=== PATIENT | female | born 1995 | race American Indian/Alaskan Native ===

== ENCOUNTER 2017-02-18 01:06 | Inpatient (IN) | payer BC ==
[2017-02-18] MEDS ORDERED: Sodium Chloride 0.9% 10 ML Syringe FLUSH PRN (02:26)
[2017-02-18] MEDS ORDERED: Lidocaine 1% 50 ML MDV INJECT ONE (02:26)
[2017-02-18] MEDS ORDERED: Oxytocin/Lactated Ringers 10 UNIT/1,000 ML BAG IV SCH (02:30)
[2017-02-18] MEDS ORDERED: Penicillin G Potassium 5 MILLUNITS in Sodium Chloride 0.9% 100 ML IV ONE (02:30)
[2017-02-18] MEDS: Lactated Ringers 1,000 ML IV SCH ×2 (03:00→04:53)
--- NOTE | 2017-02-18 05:34 | PCM.LDHP ---
L&D History of Present Illness - General Date of Service: 02/18/17 Admit Problem/Dx: Patient Status Order with Admit Dx/Problem 02/18/17 02:25 Patient Status [ADT] Routine Admission Diagnosis/Problem Admission Diagnosis/Problem Source of Information: Patient History Limitations: Reports: No Limitations - History of Present Illness Introduction:: 21-year-old TANIKA 03/13/17 with estimated gestational age 36 weeks 5 days presented to labor and delivery with contractions patient has a history of being dilated in the clinic "7 cm" I examined the patient 0510 hrs. and cervix is approximate 5 cm meters dilated patient is having irregular contractions will recheck patient in 1 hour to one half hours to determine if any change in cervical dilatation first dose of antibiotics given because of the B strep positive at 0324 hrs. blood type is A+ antibody screen negative rubella immune RPR nonreactive hepatitis B surface antigen nonreactive HIV negative Chlamydia negative GC negative patient has had 1 prior delivery at 36+ weeks premises 36 weeks 6 days) Improves with: Reports: None Worsens with: Reports: None Associated Symptoms: Reports: N - Related Data Allergies/Adverse Reactions: Allergies Allergy/AdvReac Type Severity Reaction Status Date / Time chocolate flavor Allergy Hives Verified 01/11/17 04:38 CDT venom-honey bee AdvReac Lethargy Verified 01/11/17 04:38 CDT [bee venom (honey bee)] barbaque chips Allergy Facial Uncoded 02/15/16 12:56 Swelling Home Medications: Home Meds Vit W-Ca,Fe,FA(<1 mg) [ Vitamins] 1 each PO DAILY 01/10/17 [ History] Past Medical History - Past Health History Medical/Surgical History: Denies 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 Para: 1 (1102) - Infectious Disease History Infectious Disease History: Reports: MRSA Social & Family History - Family History Family Medical History: Noncontributory - Tobacco Use Smoking Status *Q: Never Smoker Second Hand Smoke Exposure: No - Caffeine Use Caffeine Use: Reports: Soda - Alcohol Use Days Per Week of Alcohol Use: 0 - Recreational Drug Use Recreational Drug Use: No H&P Review of Systems - Review of Systems: Review Of Systems: See Below General: Reports: No Symptoms HEENT: Reports: No Symptoms Pulmonary: Reports: No Symptoms Cardiovascular: Reports: No Symptoms Gastrointestinal: Reports: No Symptoms Genitourinary: Reports: No Symptoms Musculoskeletal: Reports: No Symptoms Skin: Reports: No Symptoms Psychiatric: Reports: No Symptoms Neurological: Reports: No Symptoms Hematologic/Lymphatic: Reports: No Symptoms Immunologic: Reports: No Symptoms L&D Exam - Exam Exam: See Below - Vital Signs Vital Signs: Last Vital Signs Temp 98.2 F 02/18/17 01:32 Pulse 87 02/18/17 01:32 Resp 18 02/18/17 01:32 BP 115/76 02/18/17 01:32 Pulse Ox 100 02/18/17 01:32 Weight: 209 lb 9.6 oz - OB Specific Fundal Height In cm: 36 Contraction Intensity: Moderate Movement: Active Heart Tones: Present Heart Tones per Min: 130 Heart Rate (FHR) Variability: Moderate (6-25 bmp) Presentation: Vertex - De Dios Score De Dios Score Cervix Position: Posterior De Dios Score Consistency: Soft De Dios Score Effacement: 51-70% De Dios Score Dilation: > 5 cm De Dios Score 's Station: -2 De Dios Score Total: 8 - Exam General: Alert, Oriented HEENT: Mucosa Moist & [place] Neck: Supple, Trachea Midline Lungs: Clear to Auscultation, Normal Respiratory Effort Cardiovascular: Regular Rate, Regular Rhythm Abdomen: Normal Bowel Sounds, Soft, Pelvis Stable Genitourinary: Normal external exam Extremities: Normal Inspection Skin: Warm, Dry, Intact Psychiatric: Alert, Normal Affect, Normal Mood - Patient Data Lab Results Last 24 hrs: Laboratory Results - last 24 hr 02/18/17 02/18/17 02/18/17 Range/Units 01:30 02:41 02:41 WBC 8.35 (3.98-10.04) K/mm3 RBC 3.81 L (3.98-5.22) M/mm3 Hgb 8.4 L (11.2-15.7) gm/L Hct 26.9 L (34.1-44.9) % MCV 70.6 L (79.4-94.8) fl MCH 22.0 L (25.6-32.2) pg MCHC 31.2 L (32.2-35.5) g/dl RDW Std Deviation 44.2 (36.4-46.3) fL Plt Count 375 H (182-369) K/mm3 MPV 9.9 (9.4-12.3) fl Neut % (Auto) 66.1 (34.0-71.1) % Lymph % (Auto) 23.6 (19.3-51.7) % [place] % (Auto) 8.3 (4.7-12.5) % Eos % (Auto) 1.0 (0.7-5.8) Baso % (Auto) 0.5 (0.1-1.2) % Neut # (Auto) 5.53 (1.56-6.13) K/mm3 Lymph # (Auto) 1.97 (1.18-3.74) K/mm3 [place] # (Auto) 0.69 H (0.24-0.36) K/mm3 Eos # (Auto) 0.08 (0.04-0.36) K/mm3 Baso # (Auto) 0.04 (0.01-0.08) K/mm3 Manual Slide Review Abnormal smear Membrane Rupture Negative Blood Type A POSITIVE Gel Antibody Screen Negative Result Diagrams: 02/18/17 02:41 - Problem List (1) 36 weeks gestation of SNOMED Code(s): 36717292 ICD Code: Z3A.36 - 36 WEEKS GESTATION OF Status: Acute Current Visit: Yes (2) GBS carrier SNOMED Code(s): 6793098447192 ICD Code: Z22.330 - CARRIER OF GROUP B STREPTOCOCCUS Status: Acute Current Visit: Yes (3) uterine contractions in third trimester, antepartum SNOMED Code(s): 439382560, 654055865 ICD Code: O47.03 - FALSE LABOR BEFORE 37 COMPLETED WEEKS OF GEST, THIRD TRI Status: Acute Current Visit: No Problem List Initiated/Reviewed/Updated: No Orders Last 24hrs: Active Orders 24 hr Category Date Time Status Patient Status [ADT] Routine ADT 02/18/17 02:25 Active Activity as Tolerated [RC] PFP Care 02/18/17 02:27 Active Communication Order [RC] ASDIRECTED Care 02/18/17 02:27 Active Heart Tones [RC] ASDIRECTED Care 02/18/17 02:27 Active Notify Provider [RC] PFP Care 02/18/17 02:27 Active Notify Provider [RC] PRN Care 02/18/17 02:27 Active Peripheral IV Care [RC] . DIRECTED Care 02/18/17 02:27 Active Vital Signs [RC] PER UNIT ROUTINE Care 02/18/17 02:27 Active Clear Liquid Diet [DIET] Diet 02/18/17 Breakfast Active CULTURE URINE [RM] Routine Lab 02/18/17 02:26 Uncollected UA W/MICROSCOPIC [URIN] Routine Lab 02/18/17 02:26 Uncollected Lactated Ringers [Ringers, Lactated] 1,000 ml Med 02/18/17 02:30 Active IV ASDIRECTED Oxytocin/Lactated Ringers [Pitocin in LR 10 Units/1,000 Med 02/18/17 02:30 Active ML] 10 unit in 1,000 ml IV TITRATE Penicillin G Potassium [Pfizerpen] 2.5 millunits Med 02/18/17 06:30 Active Sodium Chloride 0.9% [Normal Saline] 100 ml IV Q4H Sodium Chloride 0.9% [Saline Flush] Med 02/18/17 02:26 Active 10 ml FLUSH ASDIRECTED PRN Electronic Heart Tones Ext w TOCO [WOMSER] Oth 02/18/17 02:27 Ordered Routine Electronic Heart Tones Internal [WOMSER] Per Unit Oth 02/18/17 02:27 Ordered Routine Peripheral IV Insertion Adult [OM.PC] Routine Oth 02/18/17 02:27 Ordered Resuscitation Status Routine Resus Stat 02/18/17 02:26 Ordered Medication Orders Lactated Ringer's (Ringers, Lactated) 1,000 mls @ 100 mls/hr IV ASDIRECTED KENNY Last Admin: 02/18/17 04:53 Dose: 100 mls/hr Infusion: 02/18/17 04:53 Dose: 100 mls/hr Admin: 02/18/17 03:00 Dose: 100 mls/hr Oxytocin/Lactated Ringer's (Pitocin In Lr 10 Units/1,000 Ml) 10 unit in 1,000 mls @ 500 mls/hr IV TITRATE [facility] PRN Reason: Protocol Penicillin G Potassium 2.5 (millunits/ Sodium Chloride) 100 mls @ 55 mls/hr IV Q4H [facility] Sodium Chloride (Saline Flush) 10 ml FLUSH ASDIRECTED PRN PRN Reason: Keep Vein Open Assessment/Plan Comment:: Will reassess patient in approximately 1-2 hours and determine if cervical change has occurred
[2017-02-18] MEDS ORDERED: Penicillin G Potassium 2.5 MILLUNITS in Sodium Chloride 0.9% 100 ML IV SCH (06:30)
--- NOTE | 2017-02-18 06:54 | PCM.SN ---
- Free Text/Narrative Note: Cervix now 7 cm dilated 70% effaced soft mid position 0 station vertex amniotomy performed at 0 0650 hrs. clear fluid heart tones category 1 before and after amniotomy, will receive her second dose of antibiotics for group B strep prophylaxis
--- NOTE | 2017-02-18 08:41 | PCM.SN ---
- Free Text/Narrative Note: Cervix 9 cm/100 % effaced, midposition, soft, vertex 0 station. Slight nausea, had BM, feeling some pressure. Cat I FHR
--- NOTE | 2017-02-18 09:24 | PCM.DEL ---
L & D Note - General Info Date of Service: 02/18/17 Mother's Due Date: 03/13/17 - Delivery Note Labor: spontaneous, augmented by ARM Delivery Outcome: Livebirth (Female liveborn Sundays02/19/2015 and 0859 hrs. CEDRICK female 3280 g 7 pounds 3.4 ounces Apgars 8/9) Delivery Method: Spontaneous Vaginal Delivery Infant Delivery Mode: Spontaneous Presentation: Left Occiput Anterior (CEDRICK) Nuchal Cord: None Prep: Povidone-Iodine (Betadine Anesthesia Type: None Episiotomy Type: None Laceration: none Placenta: intact, spontaneous (Spontaneous delivery Schultze presentation at 0902 hrs. and intact central cord insertion discarded after examination) Cord: 3 vessels Estimated Blood Loss: 250 Resuscitation Needed: No [place]: Suctioned, Bulb Syringe, Stimulated, Warmed, Basco Used, Warmer Used Provider: Gregory Roman Score 1 min: 8 Score 5 min: 9 - Patient Data Vitals - most recent: Last Vital Signs Temp 98.2 F 02/18/17 01:32 Pulse 87 02/18/17 01:32 Resp 18 02/18/17 01:32 BP 115/76 02/18/17 01:32 Pulse Ox 100 02/18/17 01:32 Weight - most recent: 209 lb 9.6 oz I&O - last 24 hours: Intake & Output 02/17/17 02/18/17 02/18/17 22:59 06:59 14:59 Intake Total 100 Balance 100 Lab Results last 24 hrs: Laboratory Results - last 24 hr 02/18/17 02/18/17 02/18/17 Range/Units 01:30 02:41 02:41 WBC 8.35 (3.98-10.04) K/mm3 RBC 3.81 L (3.98-5.22) M/mm3 Hgb 8.4 L (11.2-15.7) gm/L Hct 26.9 L (34.1-44.9) % MCV 70.6 L (79.4-94.8) fl MCH 22.0 L (25.6-32.2) pg MCHC 31.2 L (32.2-35.5) g/dl RDW Std Deviation 44.2 (36.4-46.3) fL Plt Count 375 H (182-369) K/mm3 MPV 9.9 (9.4-12.3) fl Neut % (Auto) 66.1 (34.0-71.1) % Lymph % (Auto) 23.6 (19.3-51.7) % [place] % (Auto) 8.3 (4.7-12.5) % Eos % (Auto) 1.0 (0.7-5.8) Baso % (Auto) 0.5 (0.1-1.2) % Neut # (Auto) 5.53 (1.56-6.13) K/mm3 Lymph # (Auto) 1.97 (1.18-3.74) K/mm3 [place] # (Auto) 0.69 H (0.24-0.36) K/mm3 Eos # (Auto) 0.08 (0.04-0.36) K/mm3 Baso # (Auto) 0.04 (0.01-0.08) K/mm3 Manual Slide Review Abnormal smear Urine Color (Yellow) Urine Appearance (Clear) Urine pH (5.0-8.0) Ur Specific [place] (1.005-1.030) Urine Protein (Negative) Urine Glucose (UA) (Negative) Urine Ketones (Negative) Urine Occult Blood (Negative) Urine Nitrite (Negative) Urine Bilirubin (Negative) Urine Urobilinogen (0.2-1.0) Ur Leukocyte Esterase (Negative) Urine RBC (0-5) /hpf Urine WBC (0-5) /hpf Ur Epithelial Cells (0-5) /hpf Ur Transition Epith Cell (0-5) Urine Bacteria (FEW) /hpf Urine Mucus (FEW) /hpf Urine Yeast (NOT SEEN) Membrane Rupture Negative Blood Type A POSITIVE Gel Antibody Screen Negative 02/18/17 Range/Units 04:56 WBC (3.98-10.04) K/mm3 RBC (3.98-5.22) M/mm3 Hgb (11.2-15.7) gm/L Hct (34.1-44.9) % MCV (79.4-94.8) fl MCH (25.6-32.2) pg MCHC (32.2-35.5) g/dl RDW Std Deviation (36.4-46.3) fL Plt Count (182-369) K/mm3 MPV (9.4-12.3) fl Neut % (Auto) (34.0-71.1) % Lymph % (Auto) (19.3-51.7) % [place] % (Auto) (4.7-12.5) % Eos % (Auto) (0.7-5.8) Baso % (Auto) (0.1-1.2) % Neut # (Auto) (1.56-6.13) K/mm3 Lymph # (Auto) (1.18-3.74) K/mm3 [place] # (Auto) (0.24-0.36) K/mm3 Eos # (Auto) (0.04-0.36) K/mm3 Baso # (Auto) (0.01-0.08) K/mm3 Manual Slide Review Urine Color Yellow (Yellow) Urine Appearance Clear (Clear) Urine pH 6.0 (5.0-8.0) Ur Specific [place] > or = 1.030 (1.005-1.030) Urine Protein Negative (Negative) Urine Glucose (UA) Negative (Negative) Urine Ketones Negative (Negative) Urine Occult Blood Trace-lysed H (Negative) Urine Nitrite Negative (Negative) Urine Bilirubin Negative (Negative) Urine Urobilinogen 0.2 (0.2-1.0) Ur Leukocyte Esterase 1+ H (Negative) Urine RBC 0-5 (0-5) /hpf Urine WBC 5-10 H (0-5) /hpf Ur Epithelial Cells 10-20 H (0-5) /hpf Ur Transition Epith Cell 0-5 (0-5) Urine Bacteria Few (FEW) /hpf Urine Mucus Moderate H (FEW) /hpf Urine Yeast Not seen (NOT SEEN) Membrane Rupture Blood Type Gel Antibody Screen Med Orders - Current: Current Medications Lactated Ringer's (Ringers, Lactated) 1,000 mls @ 100 mls/hr IV ASDIRECTED [facility] Last Admin: 02/18/17 04:53 Dose: 100 mls/hr Oxytocin/Lactated Ringer's (Pitocin In Lr 10 Units/1,000 Ml) 10 unit in 1,000 mls @ 500 mls/hr IV TITRATE [facility] PRN Reason: Protocol Penicillin G Potassium 2.5 (millunits/ Sodium Chloride) 100 mls @ 55 mls/hr IV Q4H [facility] Last Admin: 02/18/17 07:05 Dose: 55 mls/hr Sodium Chloride (Saline Flush) 10 ml FLUSH ASDIRECTED PRN PRN Reason: Keep Vein Open Discontinued Medications Penicillin G Potassium 5 (millunits/ Sodium Chloride) 100 mls @ 55 mls/hr IV ONETIME ONE Stop: 02/18/17 04:19 Last Admin: 02/18/17 03:23 Dose: 55 mls/hr Lidocaine HCl (Xylocaine 1%) 50 ml INJECT ONETIME ONE Stop: 02/18/17 02:27 - Problem List & Annotations (1) 36 weeks gestation of SNOMED Code(s): 48498094 Code(s): Z3A.36 - 36 WEEKS GESTATION OF Status: Acute Current Visit: Yes (2) GBS carrier SNOMED Code(s): 5977425697932 Code(s): Z22.330 - CARRIER OF GROUP B STREPTOCOCCUS Status: Acute Current Visit: Yes (3) labor in third trimester with delivery SNOMED Code(s): 3303731, 648380538 Code(s): O60.14X0 - LABOR THIRD TRI W DELIVERY THIRD TRI, UNSP Status: Acute Current Visit: Yes Qualifiers: Fetus number: single or unspecified fetus Qualified Code(s): O60.14X0 - labor third trimester with delivery third trimester, not applicable or unspecified - Problem List Review Problem List Initiated/Reviewed/Updated: No - My Orders Last 24 Hours: My Active Orders 02/18/17 02:25 Patient Status [ADT] Routine 02/18/17 02:26 Sodium Chloride 0.9% [Saline Flush] 10 ml FLUSH ASDIRECTED PRN Resuscitation Status Routine 02/18/17 02:27 Activity as Tolerated [RC] PFP Communication Order [RC] ASDIRECTED Heart Tones [RC] ASDIRECTED Notify Provider [RC] PFP Notify Provider [RC] PRN Peripheral IV Care [RC] . DIRECTED Vital Signs [RC] PER UNIT ROUTINE Electronic Heart Tones Ext w TOCO [WOMSER] Routine Electronic Heart Tones Internal [WOMSER] Per Unit Routine Peripheral IV Insertion Adult [OM.PC] Routine 02/18/17 02:30 Lactated Ringers [Ringers, Lactated] 1,000 ml IV ASDIRECTED Oxytocin/Lactated Ringers [Pitocin in LR 10 Units/1,000 ML] 10 unit in 1,000 ml IV TITRATE 02/18/17 04:56 CULTURE URINE [RM] Routine 02/18/17 06:30 Penicillin G Potassium [Pfizerpen] 2.5 millunits Sodium Chloride 0.9% [Normal Saline] 100 ml IV Q4H 02/18/17 Breakfast Clear Liquid Diet [DIET] - Plan Plan:: Will reassess patient in approximately 1-2 hours and determine if cervical change has occurred
[2017-02-18] MEDS ORDERED: Acetaminophen 325 MG Tab PO PRN (09:34)
[2017-02-18] MEDS ORDERED: Benzocaine/Menthol 20%-0.5% Spray 56 GM Canister TOP PRN (09:34)
[2017-02-18] MEDS ORDERED: Witch Hazel Medicated Pads 100/Jar TOP PRN (09:34)
[2017-02-18] MEDS ORDERED: Docusate Sodium 100 MG Cap PO PRN (09:34)
[2017-02-18] MEDS ORDERED: Lanolin 100% Cream 7 GM Tube TOP PRN (09:34)
[2017-02-18] MEDS: Ibuprofen 600 MG Tab PO PRN ×2 (10:25→21:24)
--- NOTE | 2017-02-19 08:26 | PCM.SN ---
- Free Text/Narrative Note: day 1 Uterus involuting normally no heavy vaginal bleeding no leg cramping patient probably home tomorrow baby needs to stay 1 more day as well
[2017-02-19] MEDS: Prenatal Multivitamin with Calcium/Folic Acid/Iron Tab PO SCH (09:25)
[2017-02-20] MEDS: Prenatal Multivitamin with Calcium/Folic Acid/Iron Tab PO SCH (09:16)
--- NOTE | 2017-02-20 10:08 | PCM.DCSUM1 ---
Discharge Summary - Hospital Course Free Text/Narrative:: [facility] LIVE L/D Delivery Note Patient Name: DANI GUTIÉRREZ Date of : 89 Patient Status: Inpatient Attending Provider: Gregory Roman Date: 02/18/17 09:14 Initialization Date: 02/18/17 09:14 L & D Note - General Info Date of Service: 02/18/17 Mother's Due Date: 03/13/17 - Delivery Note Labor: spontaneous, augmented by ARM Delivery Outcome: Livebirth (Female liveborn Sundays02/19/2015 and 0859 hrs. CEDRICK female 3280 g 7 pounds 3.4 ounces Apgars 8/9) Infant Delivery Method: Spontaneous Vaginal Delivery Infant Delivery Mode: Spontaneous Presentation: Left Occiput Anterior (CEDRICK) Nuchal Cord: None Prep: Povidone-Iodine (Betadine Anesthesia Type: None Episiotomy Type: None Laceration: none Placenta: intact, spontaneous (Spontaneous delivery Schultze presentation at 0902 hrs. and intact central cord insertion discarded after examination) Cord: 3 vessels Estimated Blood Loss: 250 Resuscitation Needed: No : Suctioned, Bulb Syringe, Stimulated, Warmed, [place] Used, Warmer Used Provider: Gregory Roman Score 1 min: 8 Score 5 min: 9 - Patient Data Vitals - most recent: Last Vital Signs Temp 98.2 F 02/18/17 01:32 Pulse 87 02/18/17 01:32 Resp 18 02/18/17 01:32 BP 115/76 02/18/17 01:32 Pulse Ox 100 02/18/17 01:32 Weight - most recent: 209 lb 9.6 oz I&O - last 24 hours: Intake & Output 02/17/17 02/18/17 02/18/17 22:59 06:59 14:59 Intake Total 100 Balance 100 Lab Results last 24 hrs: Laboratory Results - last 24 hr 02/18/17 02/18/17 02/18/17 Range/Units 01:30 02:41 02:41 WBC 8.35 (3.98-10.04) K/mm3 RBC 3.81 L (3.98-5.22) M/mm3 Hgb 8.4 L (11.2-15.7) gm/L Hct 26.9 L (34.1-44.9) % MCV 70.6 L (79.4-94.8) fl MCH 22.0 L (25.6-32.2) pg MCHC 31.2 L (32.2-35.5) g/dl RDW Std Deviation 44.2 (36.4-46.3) fL Plt Count 375 H (182-369) K/mm3 MPV 9.9 (9.4-12.3) fl Neut % (Auto) 66.1 (34.0-71.1) % Lymph % (Auto) 23.6 (19.3-51.7) % [place] % (Auto) 8.3 (4.7-12.5) % Eos % (Auto) 1.0 (0.7-5.8) Baso % (Auto) 0.5 (0.1-1.2) % Neut # (Auto) 5.53 (1.56-6.13) K/mm3 Lymph # (Auto) 1.97 (1.18-3.74) K/mm3 [place] # (Auto) 0.69 H (0.24-0.36) K/mm3 Eos # (Auto) 0.08 (0.04-0.36) K/mm3 Baso # (Auto) 0.04 (0.01-0.08) K/mm3 Manual Slide Review Abnormal smear Urine Color (Yellow) Urine Appearance (Clear) Urine pH (5.0-8.0) Ur Specific [place] (1.005-1.030) Urine Protein (Negative) Urine Glucose (UA) (Negative) Urine Ketones (Negative) Urine Occult Blood (Negative) Urine Nitrite (Negative) Urine Bilirubin (Negative) Urine Urobilinogen (0.2-1.0) Ur Leukocyte Esterase (Negative) Urine RBC (0-5) /hpf Urine WBC (0-5) /hpf Ur Epithelial Cells (0-5) /hpf Ur Transition Epith Cell (0-5) Urine Bacteria (FEW) /hpf Urine Mucus (FEW) /hpf Urine Yeast (NOT SEEN) Membrane Rupture Negative Blood Type A POSITIVE Gel Antibody Screen Negative 02/18/17 Range/Units 04:56 WBC (3.98-10.04) K/mm3 RBC (3.98-5.22) M/mm3 Hgb (11.2-15.7) gm/L Hct (34.1-44.9) % MCV (79.4-94.8) fl MCH (25.6-32.2) pg MCHC (32.2-35.5) g/dl RDW Std Deviation (36.4-46.3) fL Plt Count (182-369) K/mm3 MPV (9.4-12.3) fl Neut % (Auto) (34.0-71.1) % Lymph % (Auto) (19.3-51.7) % [place] % (Auto) (4.7-12.5) % Eos % (Auto) (0.7-5.8) Baso % (Auto) (0.1-1.2) % Neut # (Auto) (1.56-6.13) K/mm3 Lymph # (Auto) (1.18-3.74) K/mm3 [place] # (Auto) (0.24-0.36) K/mm3 Eos # (Auto) (0.04-0.36) K/mm3 Baso # (Auto) (0.01-0.08) K/mm3 Manual Slide Review Urine Color Yellow (Yellow) Urine Appearance Clear (Clear) Urine pH 6.0 (5.0-8.0) Ur Specific [place] > or = 1.030 (1.005-1.030) Urine Protein Negative (Negative) Urine Glucose (UA) Negative (Negative) Urine Ketones Negative (Negative) Urine Occult Blood Trace-lysed H (Negative) Urine Nitrite Negative (Negative) Urine Bilirubin Negative (Negative) Urine Urobilinogen 0.2 (0.2-1.0) Ur Leukocyte Esterase 1+ H (Negative) Urine RBC 0-5 (0-5) /hpf Urine WBC 5-10 H (0-5) /hpf Ur Epithelial Cells 10-20 H (0-5) /hpf Ur Transition Epith Cell 0-5 (0-5) Urine Bacteria Few (FEW) /hpf Urine Mucus Moderate H (FEW) /hpf Urine Yeast Not seen (NOT SEEN) Membrane Rupture Blood Type Gel Antibody Screen Med Orders - Current: Current Medications Lactated Ringer's (Ringers, Lactated) 1,000 mls @ 100 mls/hr IV ASDIRECTED KENNY Last Admin: 02/18/17 04:53 Dose: 100 mls/hr Oxytocin/Lactated Ringer's (Pitocin In Lr 10 Units/1,000 Ml) 10 unit in 1,000 mls @ 500 mls/hr IV TITRATE KENNY PRN Reason: Protocol Penicillin G Potassium 2.5 (millunits/ Sodium Chloride) 100 mls @ 55 mls/hr IV Q4H KENNY Last Admin: 02/18/17 07:05 Dose: 55 mls/hr Sodium Chloride (Saline Flush) 10 ml FLUSH ASDIRECTED PRN PRN Reason: Keep Vein Open Discontinued Medications Penicillin G Potassium 5 (millunits/ Sodium Chloride) 100 mls @ 55 mls/hr IV ONETIME ONE Stop: 02/18/17 04:19 Last Admin: 02/18/17 03:23 Dose: 55 mls/hr Lidocaine HCl (Xylocaine 1%) 50 ml INJECT ONETIME ONE Stop: 02/18/17 02:27 - Problem List & Annotations (1) 36 weeks gestation of SNOMED Code(s): 20119366 Code(s): Z3A.36 - 36 WEEKS GESTATION OF Status: Acute Current Visit: Yes (2) GBS carrier SNOMED Code(s): 1403289995544 Code(s): Z22.330 - CARRIER OF GROUP B STREPTOCOCCUS Status: Acute Current Visit: Yes (3) labor in third trimester with delivery SNOMED Code(s): 8950673, 546184609 Code(s): O60.14X0 - LABOR THIRD TRI W DELIVERY THIRD TRI, UNSP Status: Acute Current Visit: Yes Qualifiers: Fetus number: single or unspecified fetus Qualified Code(s): O60.14X0 - labor third trimester with delivery third trimester, not applicable or unspecified - Problem List Review Problem List Initiated/Reviewed/Updated: No - My Orders Last 24 Hours: My Active Orders 02/18/17 02:25 Patient Status [ADT] Routine 02/18/17 02:26 Sodium Chloride 0.9% [Saline Flush] 10 ml FLUSH ASDIRECTED PRN Resuscitation Status Routine 02/18/17 02:27 Activity as Tolerated [RC] PFP Communication Order [RC] ASDIRECTED Heart Tones [RC] ASDIRECTED Notify Provider [RC] PFP Notify Provider [RC] PRN Peripheral IV Care [RC] . DIRECTED Vital Signs [RC] PER UNIT ROUTINE Electronic Heart Tones Ext w TOCO [WOMSER] Routine Electronic Heart Tones Internal [WOMSER] Per Unit Routine Peripheral IV Insertion Adult [OM.PC] Routine 02/18/17 02:30 Lactated Ringers [Ringers, Lactated] 1,000 ml IV ASDIRECTED Oxytocin/Lactated Ringers [Pitocin in LR 10 Units/1,000 ML] 10 unit in 1,000 ml IV TITRATE 02/18/17 04:56 CULTURE URINE [RM] Routine 02/18/17 06:30 Penicillin G Potassium [Pfizerpen] 2.5 millunits Sodium Chloride 0.9% [Normal Saline] 100 ml IV Q4H 02/18/17 Breakfast Clear Liquid Diet [DIET] - Plan Plan:: Will reassess patient in approximately 1-2 hours and determine if cervical change has occurred HPI Initial Comments: [facility] LIVE L/D Delivery Note Patient Name: DANI GUTIÉRREZ Date of : [birth year] Patient Status: Inpatient Attending Provider: Gregory Roman Date: 02/18/17 09:14 Initialization Date: 02/18/17 09:14 L & D Note - General Info Date of Service: 02/18/17 Mother's Due Date: 03/13/17 - Delivery Note Labor: spontaneous, augmented by ARM Delivery Outcome: Livebirth (Female liveborn Sundays02/19/2015 and 0859 hrs. CEDRICK female 3280 g 7 pounds 3.4 ounces Apgars 8/9) Delivery Method: Spontaneous Vaginal Delivery Infant Delivery Mode: Spontaneous Presentation: Left Occiput Anterior (CEDRICK) Nuchal Cord: None Prep: Povidone-Iodine (Betadine Anesthesia Type: None Episiotomy Type: None Laceration: none Placenta: intact, spontaneous (Spontaneous delivery Schultze presentation at 0902 hrs. and intact central cord insertion discarded after examination) Cord: 3 vessels Estimated Blood Loss: 250 Resuscitation Needed: No : Suctioned, Bulb Syringe, Stimulated, Warmed, [place] Used, Warmer Used Provider: Gregory Roman Score 1 min: 8 Score 5 min: 9 - Patient Data Vitals - most recent: Last Vital Signs Temp 98.2 F 02/18/17 01:32 Pulse 87 02/18/17 01:32 Resp 18 02/18/17 01:32 BP 115/76 02/18/17 01:32 Pulse Ox 100 02/18/17 01:32 Weight - most recent: 209 lb 9.6 oz I&O - last 24 hours: Intake & Output 02/17/17 02/18/17 02/18/17 22:59 06:59 14:59 Intake Total 100 Balance 100 Lab Results last 24 hrs: Laboratory Results - last 24 hr 02/18/17 02/18/17 02/18/17 Range/Units 01:30 02:41 02:41 WBC 8.35 (3.98-10.04) K/mm3 RBC 3.81 L (3.98-5.22) M/mm3 Hgb 8.4 L (11.2-15.7) gm/L Hct 26.9 L (34.1-44.9) % MCV 70.6 L (79.4-94.8) fl MCH 22.0 L (25.6-32.2) pg MCHC 31.2 L (32.2-35.5) g/dl RDW Std Deviation 44.2 (36.4-46.3) fL Plt Count 375 H (182-369) K/mm3 MPV 9.9 (9.4-12.3) fl Neut % (Auto) 66.1 (34.0-71.1) % Lymph % (Auto) 23.6 (19.3-51.7) % [place] % (Auto) 8.3 (4.7-12.5) % Eos % (Auto) 1.0 (0.7-5.8) Baso % (Auto) 0.5 (0.1-1.2) % Neut # (Auto) 5.53 (1.56-6.13) K/mm3 Lymph # (Auto) 1.97 (1.18-3.74) K/mm3 [place] # (Auto) 0.69 H (0.24-0.36) K/mm3 Eos # (Auto) 0.08 (0.04-0.36) K/mm3 Baso # (Auto) 0.04 (0.01-0.08) K/mm3 Manual Slide Review Abnormal smear Urine Color (Yellow) Urine Appearance (Clear) Urine pH (5.0-8.0) Ur Specific [place] (1.005-1.030) Urine Protein (Negative) Urine Glucose (UA) (Negative) Urine Ketones (Negative) Urine Occult Blood (Negative) Urine Nitrite (Negative) Urine Bilirubin (Negative) Urine Urobilinogen (0.2-1.0) Ur Leukocyte Esterase (Negative) Urine RBC (0-5) /hpf Urine WBC (0-5) /hpf Ur Epithelial Cells (0-5) /hpf Ur Transition Epith Cell (0-5) Urine Bacteria (FEW) /hpf Urine Mucus (FEW) /hpf Urine Yeast (NOT SEEN) Membrane Rupture Negative Blood Type A POSITIVE Gel Antibody Screen Negative 02/18/17 Range/Units 04:56 WBC (3.98-10.04) K/mm3 RBC (3.98-5.22) M/mm3 Hgb (11.2-15.7) gm/L Hct (34.1-44.9) % MCV (79.4-94.8) fl MCH (25.6-32.2) pg MCHC (32.2-35.5) g/dl RDW Std Deviation (36.4-46.3) fL Plt Count (182-369) K/mm3 MPV (9.4-12.3) fl Neut % (Auto) (34.0-71.1) % Lymph % (Auto) (19.3-51.7) % [place] % (Auto) (4.7-12.5) % Eos % (Auto) (0.7-5.8) Baso % (Auto) (0.1-1.2) % Neut # (Auto) (1.56-6.13) K/mm3 Lymph # (Auto) (1.18-3.74) K/mm3 [place] # (Auto) (0.24-0.36) K/mm3 Eos # (Auto) (0.04-0.36) K/mm3 Baso # (Auto) (0.01-0.08) K/mm3 Manual Slide Review Urine Color Yellow (Yellow) Urine Appearance Clear (Clear) Urine pH 6.0 (5.0-8.0) Ur Specific [place] > or = 1.030 (1.005-1.030) Urine Protein Negative (Negative) Urine Glucose (UA) Negative (Negative) Urine Ketones Negative (Negative) Urine Occult Blood Trace-lysed H (Negative) Urine Nitrite Negative (Negative) Urine Bilirubin Negative (Negative) Urine Urobilinogen 0.2 (0.2-1.0) Ur Leukocyte Esterase 1+ H (Negative) Urine RBC 0-5 (0-5) /hpf Urine WBC 5-10 H (0-5) /hpf Ur Epithelial Cells 10-20 H (0-5) /hpf Ur Transition Epith Cell 0-5 (0-5) Urine Bacteria Few (FEW) /hpf Urine Mucus Moderate H (FEW) /hpf Urine Yeast Not seen (NOT SEEN) Membrane Rupture Blood Type Gel Antibody Screen Med Orders - Current: Current Medications Lactated Ringer's (Ringers, Lactated) 1,000 mls @ 100 mls/hr IV ASDIRECTED [facility] Last Admin: 02/18/17 04:53 Dose: 100 mls/hr Oxytocin/Lactated Ringer's (Pitocin In Lr 10 Units/1,000 Ml) 10 unit in 1,000 mls @ 500 mls/hr IV TITRATE [facility] PRN Reason: Protocol Penicillin G Potassium 2.5 (millunits/ Sodium Chloride) 100 mls @ 55 mls/hr IV Q4H [facility] Last Admin: 02/18/17 07:05 Dose: 55 mls/hr Sodium Chloride (Saline Flush) 10 ml FLUSH ASDIRECTED PRN PRN Reason: Keep Vein Open Discontinued Medications Penicillin G Potassium 5 (millunits/ Sodium Chloride) 100 mls @ 55 mls/hr IV ONETIME ONE Stop: 02/18/17 04:19 Last Admin: 02/18/17 03:23 Dose: 55 mls/hr Lidocaine HCl (Xylocaine 1%) 50 ml INJECT ONETIME ONE Stop: 02/18/17 02:27 - Problem List & Annotations (1) 36 weeks gestation of SNOMED Code(s): 68608066 Code(s): Z3A.36 - 36 WEEKS GESTATION OF Status: Acute Current Visit: Yes (2) GBS carrier SNOMED Code(s): 9868559662234 Code(s): Z22.330 - CARRIER OF GROUP B STREPTOCOCCUS Status: Acute Current Visit: Yes (3) labor in third trimester with delivery SNOMED Code(s): 1279934, 472550093 Code(s): O60.14X0 - LABOR THIRD TRI W DELIVERY THIRD TRI, UNSP Status: Acute Current Visit: Yes Qualifiers: Fetus number: single or unspecified fetus Qualified Code(s): O60.14X0 - labor third trimester with delivery third trimester, not applicable or unspecified - Problem List Review Problem List Initiated/Reviewed/Updated: No - My Orders Last 24 Hours: My Active Orders 02/18/17 02:25 Patient Status [ADT] Routine 02/18/17 02:26 Sodium Chloride 0.9% [Saline Flush] 10 ml FLUSH ASDIRECTED PRN Resuscitation Status Routine 02/18/17 02:27 Activity as Tolerated [RC] PFP Communication Order [RC] ASDIRECTED Heart Tones [RC] ASDIRECTED Notify Provider [RC] PFP Notify Provider [RC] PRN Peripheral IV Care [RC] . DIRECTED Vital Signs [RC] PER UNIT ROUTINE Electronic Heart Tones Ext w TOCO [WOMSER] Routine Electronic Heart Tones Internal [WOMSER] Per Unit Routine Peripheral IV Insertion Adult [OM.PC] Routine 02/18/17 02:30 Lactated Ringers [Ringers, Lactated] 1,000 ml IV ASDIRECTED Oxytocin/Lactated Ringers [Pitocin in LR 10 Units/1,000 ML] 10 unit in 1,000 ml IV TITRATE 02/18/17 04:56 CULTURE URINE [RM] Routine 02/18/17 06:30 Penicillin G Potassium [Pfizerpen] 2.5 millunits Sodium Chloride 0.9% [Normal Saline] 100 ml IV Q4H 02/18/17 Breakfast Clear Liquid Diet [DIET] - Plan Plan:: Will reassess patient in approximately 1-2 hours and determine if cervical change has occurred Brief History: [facility] LIVE . L/D Delivery Note. Patient Name: DANI GUTIÉRREZAwilda Record Number: [id number]. Date of : [birth year]Patient Status: Inpatient. Attending Provider: Gregory Roman Number: [id number]. Date: 02/18/17 09:14Initialization Date: 02/18/17 09:14. L & D Note. - General Info. Date of Service: 02/18/17. Mother's Due Date: 03/13/17. - Delivery Note. Labor: spontaneous, augmented by ARM. Delivery Outcome: Livebirth (Female liveborn Sundays02/19/2015 and 0859 hrs. CEDRICK female 3280 g 7 pounds 3.4 ounces Apgars 8/9). Infant Delivery Method: Spontaneous Vaginal Delivery. Delivery Mode: Spontaneous. Presentation: Left Occiput Anterior (CEDRICK). Nuchal Cord: None. Prep: Povidone-Iodine (Betadine. Anesthesia Type: None. Episiotomy Type: None. Laceration: none. Placenta: intact, spontaneous (Spontaneous delivery Schultze presentation at 0902 hrs. and intact central cord insertion discarded after examination). Cord: 3 vessels. Estimated Blood Loss: 250. Resuscitation Needed: No. : Suctioned, Bulb Syringe, Stimulated, Warmed, [place] Used, Warmer Used. Provider: Gregory Roman. Score 1 min: 8. Score 5 min : 9. - Patient Data. Vitals - most recent: Last Vital Signs. Temp 98.2 F 01:32. Pulse 87 02/18/17 01:32. Resp 18 02/18/17 01:32. BP 115/76 02/18/17 01:32. Pulse Ox 100 02/18/17 01:32. Weight - most recent: 209 lb 9.6 oz. I&O - last 24 hours: Intake & Output. 02/17/1707. 22: 5906:5914:59. Intake [id number]. [id number]. Lab Results last 24 hrs: Laboratory Results - last 24 hr. 02/18/1707Range/Units. 01:3002: 4102:41. WBC 8.35 (3.98-10.04) K/mm3. RBC 3.81 L (3.98-5.22) M/mm3. Hgb 8.4 L (11.2-15.7) gm/L. Hct 26.9 L (34.1-44.9) %. MCV 70.6 L (79.4-94.8) fl. MCH 22.0 L (25.6-32.2) pg. MCHC 31.2 L (32.2-35.5) g/dl. RDW Std Deviation 44.2 (36.4-46.3) fL. Plt Count 375 H (182-369) K/mm3. MPV 9.9 (9.4 -12.3) fl. Neut % (Auto) 66.1 (34.0-71.1) %. Lymph % (Auto) 23.6 (19.3-51.7 ) %. [place] % (Auto) 8.3 (4.7-12.5) %. Eos % (Auto) 1.0 (0.7-5.8). Baso % ( Auto) 0.5 (0.1-1.2) %. Neut # (Auto) 5.53 (1.56-6.13) K/mm3. Lymph # (Auto) 1.97 (1.18-3.74) K/mm3. [place] # (Auto) 0.69 H (0.24-0.36) K/mm3. Eos # (Auto ) 0.08 (0.04-0.36) K/mm3. Baso # (Auto) 0.04 (0.01-0.08) K/mm3. Manual Slide Review Abnormal smear. Urine Color (Yellow). Urine Appearance (Clear). Urine pH (5.0-8.0). Ur Specific [place] (1.005-1.030). Urine Protein (Negative ). Urine Glucose (UA) (Negative). Urine Ketones (Negative). Urine Occult Blood (Negative). Urine Nitrite (Negative). Urine Bilirubin (Negative). Urine Urobilinogen (0.2-1.0). Ur Leukocyte Esterase (Negative). Urine RBC (0-5 ) /hpf. Urine WBC (0-5) /hpf. Ur Epithelial Cells (0-5) /hpf. Ur Transition Epith Cell (0-5). Urine Bacteria (FEW) /hpf. Urine Mucus (FEW) / hpf. Urine Yeast (NOT SEEN). Membrane Rupture Negative. Blood Type A POSITIVE. Gel Antibody Screen Negative. 02/18/17Range/Units. 04:56. WBC ( 3.98-10.04) K/mm3. RBC (3.98-5.22) M/mm3. Hgb (11.2-15.7) gm/L. Hct (34.1- 44.9) %. MCV (79.4-94.8) fl. MCH (25.6-32.2) pg. MCHC (32.2-35.5) g/dl. RDW Std Deviation (36.4-46.3) fL. Plt Count (182-369) K/mm3. MPV (9.4-12.3) fl. Neut % (Auto) (34.0-71.1) %. Lymph % (Auto) (19.3-51.7) %. [place] % ( Auto) (4.7-12.5) %. Eos % (Auto) (0.7-5.8). Baso % (Auto) (0.1-1.2) %. Neut # (Auto) (1.56-6.13) K/mm3. Lymph # (Auto) (1.18-3.74) K/mm3. [place] # ( Auto) (0.24-0.36) K/mm3. Eos # (Auto) (0.04-0.36) K/mm3. Baso # (Auto) (0.01 -0.08) K/mm3. Manual Slide Review. Urine Color Yellow (Yellow). Urine Appearance Clear (Clear). Urine pH 6.0 (5.0-8.0). Ur Specific [place] > or = 1.030 (1.005-1.030). Urine Protein Negative (Negative). Urine Glucose (UA) Negative (Negative). Urine Ketones Negative (Negative). Urine Occult Blood Trace-lysed H (Negative). Urine Nitrite Negative (Negative). Urine Bilirubin Negative (Negative). Urine Urobilinogen 0.2 (0.2-1.0). Ur Leukocyte Esterase 1 + H (Negative). Urine RBC 0-5 (0-5) /hpf. Urine WBC 5-10 H (0-5) /hpf. Ur Epithelial Cells 10-20 H (0-5) /hpf. Ur Transition Epith Cell 0-5 (0-5). Urine Bacteria Few (FEW) /hpf. Urine Mucus Moderate H (FEW) /hpf. Urine Yeast Not seen (NOT SEEN). Membrane Rupture. Blood Type. Gel Antibody Screen. Med Orders - Current: Current Medications. Lactated Ringer's (Ringers , Lactated) 1,000 mls @ 100 mls/hr IV ASDIRECTED KENNY. Last Admin: 02/18/17 04: 53 Dose: 100 mls/hr. Oxytocin/Lactated Ringer's (Pitocin In Lr 10 Units/1,000 Ml) 10 unit in 1,000 mls @ 500 mls/hr IV TITRATE KENNY. PRN Reason: Protocol. Penicillin G Potassium 2.5 (millunits/ Sodium Chloride) 100 mls @ 55 mls/hr IV Q4H KENNY. Last Admin: 02/18/17 07:05 Dose: 55 mls/hr. Sodium Chloride (Saline Flush) 10 ml FLUSH ASDIRECTED PRN. PRN Reason: Keep Vein Open. Discontinued Medications. Penicillin G Potassium 5 (millunits/ Sodium Chloride) 100 mls @ 55 mls/hr IV ONETIME ONE. Stop: 02/18/17 04:19. Last Admin: 02/18/17 03:23 Dose: 55 mls/hr. Lidocaine HCl (Xylocaine 1%) 50 ml INJECT ONETIME ONE. Stop : 02/18/17 02:27. - Problem List & Annotations. (1) 36 weeks gestation of . SNOMED Code(s): 68503270. Code(s): Z3A.36 - 36 WEEKS GESTATION OF Status: Acute Current Visit: Yes. (2) GBS carrier. SNOMED Code(s ): 7698808721942. Code(s): Z22.330 - CARRIER OF GROUP B STREPTOCOCCUS Status : Acute Current Visit: Yes. (3) labor in third trimester with delivery. SNOMED Code(s): 4909833, 815724839. Code(s): O60.14X0 - LABOR THIRD TRI W DELIVERY THIRD TRI, UNSP Status: Acute Current Visit: Yes. Qualifiers: Fetus number: single or unspecified fetus Qualified Code(s): O60.14X0 - labor third trimester with delivery third trimester, not applicable or unspecified. - Problem List Review. Problem List Initiated/Reviewed/Updated: No. - My Orders. Last 24 Hours: My Active Orders. 02/18/17 02:25. Patient Status [ADT] Routine. 02/18 02:26. Sodium Chloride 0.9% [Saline Flush] 10 ml FLUSH ASDIRECTED PRN. Resuscitation Status Routine. 02/18/17 02:27. Activity as Tolerated [RC] PFP. Communication Order [RC] ASDIRECTED. Heart Tones [RC] ASDIRECTED. Notify Provider [RC] PFP. Notify Provider [RC] PRN. Peripheral IV Care [RC] . DIRECTED. Vital Signs [RC] PER UNIT ROUTINE. Electronic Heart Tones Ext w TOCO [WOMSER] Routine. Electronic Heart Tones Internal [WOMSER] Per Unit Routine. Peripheral IV Insertion Adult [OM.PC] Routine. 02/18/17 02: 30. Lactated Ringers [Ringers, Lactated] 1,000 ml IV ASDIRECTED. Oxytocin/ Lactated Ringers [Pitocin in LR 10 Units/1,000 ML] 10 unit in 1,000 ml IV TITRATE. 02/18/17 04:56. CULTURE URINE [RM] Routine. 02/18/17 06:30. Penicillin G Potassium [Pfizerpen] 2.5 millunits Sodium Chloride 0.9% [Normal Saline] 100 ml IV Q4H. 02/18/17 Breakfast. Clear Liquid Diet [DIET]. - Plan. Plan:: Will reassess patient in approximately 1-2 hours and determine if cervical change has occurred - Discharge Data Discharge Date: 02/20/17 Discharge Disposition: Home, Self-Care 01 Condition: Good - Discharge Diagnosis/Problem(s) (1) 36 weeks gestation of SNOMED Code(s): 55614251 ICD Code: Z3A.36 - 36 WEEKS GESTATION OF Status: Acute Current Visit: Yes (2) GBS carrier SNOMED Code(s): 8127680453326 ICD Code: Z22.330 - CARRIER OF GROUP B STREPTOCOCCUS Status: Acute Current Visit: Yes (3) labor in third trimester with delivery SNOMED Code(s): 5639635, 821541269 ICD Code: O60.14X0 - LABOR THIRD TRI W DELIVERY THIRD TRI, UNSP Status: Acute Current Visit: Yes Qualifiers: Fetus number: single or unspecified fetus Qualified Code(s): O60.14X0 - labor third trimester with delivery third trimester, not applicable or unspecified - Patient Summary/Data Complications: none Consults: none Hospital Course: uneventful - Patient Instructions Diet: Heart Healthy Diet Driving: Do Not Drive (x48 hrs) Showering/Bathing: May Shower, No Tub Bathing/Swimming Notify Provider of: Fever, Increased Pain, Swelling and Redness, Drainage, Nausea and/or Vomiting - Discharge Plan Home Medications: Home Meds Vit W-Ca,Fe,FA(<1 mg) [ Vitamins] 1 each PO DAILY 01/10/17 [ History] Acetaminophen [Tylenol] 650 mg PO Q6H PRN #0 tablet 02/20/17 [Rx] Benzocaine/Menthol [Dermoplast Pain Relief [place]] 1 spray TOP ASDIRECTED PRN #0 canister 02/20/17 [Rx] Docusate Sodium [Colace] 100 mg PO BID PRN #0 cap 02/20/17 [Rx] Ibuprofen [IJD: Ibuprofen] 600 mg PO Q4H PRN #0 tablet 02/20/17 [Rx] Witch Shital [Tucks] 1 pad TOP ASDIRECTED PRN #0 pad 02/20/17 [Rx] Referrals: Ale Lugo MD [Physician] - (6 weeks) - Discharge Summary/Plan Comment DC Time >30 min.: No - Patient Data Vitals - Most Recent: Last Vital Signs Temp 98.1 F 02/20/17 04:32 Pulse 75 02/20/17 04:32 Resp 17 02/20/17 04:32 BP 111/80 02/20/17 04:32 Pulse Ox 97 02/20/17 04:32 Weight - Most Recent: 209 lb 9.6 oz I&O - Last 24 hours: Intake & Output 02/19/17 02/20/17 02/20/17 22:59 06:59 14:59 Intake Total 240 Balance 240 NANCY Results - Last 24 hrs: Microbiology 02/18/17 04:56 Urine Culture - Final Urine, Voided MIXED LEELEE SUGGESTIVE OF CONTAMINATION. Med Orders - Current: Current Medications Acetaminophen (Tylenol) 650 mg PO Q4H PRN PRN Reason: mild pain or fever Benzocaine/Menthol (Dermoplast Pain Relief [place]) 0 gm TOP ASDIRECTED PRN PRN Reason: Perineal Comfort Measure Docusate Sodium (Colace) 100 mg PO BID PRN PRN Reason: Constipation Last Admin: 02/19/17 20:44 Dose: 100 mg Emollient Ointment (Lansinoh Hpa) 0 gm TOP ASDIRECTED PRN PRN Reason: Sore Nipples Ibuprofen (Motrin) 600 mg PO Q4H PRN PRN Reason: Mild pain or fever Last Admin: 02/18/17 21:24 Dose: 600 mg Prenat Multivit/Contracts Paralegal/Iron/Folic Ac ( Plus Iron) 1 each PO DAILY [facility] Last Admin: 02/20/17 09:16 Dose: 1 each Witch Shital (Tucks) 1 pad TOP ASDIRECTED PRN PRN Reason: Hemorrhoid pain Discontinued Medications Lactated Ringer's (Ringers, Lactated) 1,000 mls @ 100 mls/hr IV ASDIRECTED [facility] Last Admin: 02/18/17 04:53 Dose: 100 mls/hr Oxytocin/Lactated Ringer's (Pitocin In Lr 10 Units/1,000 Ml) 10 unit in 1,000 mls @ 500 mls/hr IV TITRATE [facility] PRN Reason: Protocol Penicillin G Potassium 5 (millunits/ Sodium Chloride) 100 mls @ 55 mls/hr IV ONETIME ONE Stop: 02/18/17 04:19 Last Admin: 02/18/17 03:23 Dose: 55 mls/hr Penicillin G Potassium 2.5 (millunits/ Sodium Chloride) 100 mls @ 55 mls/hr IV Q4H [facility] Last Admin: 02/18/17 07:05 Dose: 55 mls/hr Lidocaine HCl (Xylocaine 1%) 50 ml INJECT ONETIME ONE Stop: 02/18/17 02:27 Last Admin: 02/18/17 16:54 Dose: Not Given Sodium Chloride (Saline Flush) 10 ml FLUSH ASDIRECTED PRN PRN Reason: Keep Vein Open *Q Meaningful Use (DIS) - VTE *Q VTE Criteria *Q: - Stroke *Q Stroke Criteria *Q: - AMI *Q AMI Criteria *Q:
[2017-02-20 11:16] VITALS: BP 125/87
== END 2017-02-20 11:03 | disposition home or self-care (01) | DRG 560 ==
LOC: JD.OB 01:06 → JD.OBCHECK 01:06 → JD.OB 02:25 → OBSVTOIN 08:59
PROVIDERS: ADMIT Obstetrics & Gynecology; ATTEND Obstetrics & Gynecology
PROC: 10E0XZZ Delivery of Products of Conception, External Approach (ICD-10-PCS; principal; 2017-02-18)
PROC: 10907ZC Drainage of Amniotic Fluid, Therapeutic from Products of Conception, Via Natural or Artificial Opening (ICD-10-PCS; 2017-02-18)
DX: O99.824 Streptococcus B carrier state complicating childbirth (principal); Z3A.37 37 weeks gestation of pregnancy; Z37.0 Single live birth; Z91.030 Bee allergy status; Z91.018 Allergy to other foods
CPT/HCPCS: 36415; 81001; 84112; 85025; 86850; 86900; 86901; 87086; A9270-GY; J2540; J7030; J7120

== ENCOUNTER 2020-02-12 15:33 | Emergency (ER) | payer BC ==
[2020-02-12 16:02] VITALS: BP 132/90; PULSE 91
[2020-02-12] MEDS ORDERED: Sodium Chloride 0.9% 1,000 ML IV ONE (16:41)
[2020-02-12] MEDS ORDERED: Sodium Chloride 0.9% 10 ML Syringe FLUSH PRN ×2 (16:41→17:22)
[2020-02-12] MEDS ORDERED: Ondansetron 4 MG/2 ML SDV IVPUSH ONE (16:41)
--- NOTE | 2020-02-12 16:50 | EDM.PDOC ---
ED HPI GENERAL MEDICAL PROBLEM - General Chief Complaint: Abdominal Pain Stated Complaint: R SIDE STOMACH PAIN Time Seen by Provider: 02/12/20 15:57 Source of Information: Reports: Patient, RN Notes Reviewed History Limitations: Reports: No Limitations - History of Present Illness INITIAL COMMENTS - FREE TEXT/NARRATIVE: Patient is a 24-year-old female who presents to the ED for the evaluation of a right sided abdomen pain. Patient notes this is been ongoing for quite some time, and was evaluated in [facility] around 3 weeks ago, she does not believe there is any sort imaging taken, but she was told to change her diet, stop eating red meats and try chicken at that time. Patient states that she feels generally nauseated, wants to eat but then cannot eat. She states that she can keep food and fluids down, but she just does not have an appetite. She states that she does not think she can be , her last menstrual period was November 29 however. She has been off control for a year, and states that she is trying to get . Patient states that there is a dull, achy, throbbing pressure/pain to her right flank area. She does note that she has had her appendix taken out it [facility] in 2018. She states that the pain is kind of constant, when she eats meat it seems to worsen it, and when she is not thinking about the pain, it seems to make it better. Patient denies any other sick-like symptoms, fever/chills, cough/shortness of breath, she does have nausea but no vomiting, no diarrhea, states her last regular stool was yesterday morning. Patient notes that she has been trying to change her diet habits as directed, but does not seem to be doing much. Right Lower Abdomen Pain Score (Numeric/FACES): 9 - Related Data Allergies Allergy/AdvReac Type Severity Reaction Status Date / Time chocolate flavor Allergy Severe Hives Verified 02/12/20 16:02 venom-honey bee AdvReac Severe Lethargy Verified 02/12/20 16:02 [bee venom (honey bee)] barbaque chips Allergy Severe Facial Uncoded 02/12/20 16:02 Swelling Home Meds: Home Meds Cefdinir [Omnicef] 300 mg PO BID 5 Days #10 cap 02/12/20 [Rx] Naproxen [Naprosyn] 500 mg PO Q12HR #14 tab 02/12/20 [Rx] Past Medical History Genitourinary History: Reports: UTI, Recurrent [employer] History: Reports: Endocrine/Metabolic History: Reports: Obesity/BMI 30+ - Infectious Disease History Infectious Disease History: Reports: MRSA - Past Surgical History GI Surgical History: Reports: Appendectomy - Past Imaging History Past Imaging History: Reports: None Social & Family History - Family History Family Medical History: Noncontributory - Tobacco Use Smoking Status *Q: Never Smoker - Caffeine Use Caffeine Use: Reports: Soda, Tea - Recreational Drug Use Recreational Drug Use: No ED ROS GENERAL - Review of Systems Review Of Systems: Comprehensive ROS is negative, except as noted in HPI. ED EXAM, GI/ABD - Physical Exam Exam: See Below Exam Limited By: No Limitations General Appearance: Alert, WD/WN, No Apparent Distress Eyes: Bilateral: Normal Appearance, EOMI Throat/Mouth: Normal Inspection, Normal Lips, Normal Teeth, Normal Gums, Normal Oropharynx, Normal Voice, No Airway Compromise Head: Atraumatic, Normocephalic Neck: Normal Inspection Respiratory/Chest: No Respiratory Distress, Lungs Clear, Normal Breath Sounds, No Accessory Muscle Use, Chest Non-Tender Cardiovascular: Normal Peripheral Pulses, Regular Rate, Rhythm, No Murmur GI/Abdominal Exam: Normal Bowel Sounds, Soft, No Distention, No Mass, Tender ( right sides abdomen pain and over the right flank) Extremities: Normal Inspection, Normal Capillary Refill Neurological: Alert, Oriented, Normal Cognition, No Motor/Sensory Deficits Psychiatric: Normal Affect, Normal Mood Skin Exam: Warm, Dry, Intact, Normal Color, No Rash Course - Vital Signs Last Recorded V/S: Last Vital Signs Temp 97.4 F 02/12/20 16:00 Pulse 91 02/12/20 16:00 Resp 20 02/12/20 16:00 BP 132/90 02/12/20 16:00 Pulse Ox 97 02/12/20 16:00 - Orders/Labs/Meds Orders: Active Orders 24 hr Category Date Time Status Peripheral IV Care [RC] . DIRECTED Care 02/12/20 16:41 Active CULTURE URINE [RM] Routine Lab 02/12/20 18:59 Ordered Ketorolac [Toradol] Med 02/12/20 19:15 Once 30 mg IVPUSH ONETIME ONE Sodium Chloride 0.9% [Saline Flush] Med 02/12/20 16:41 Active 10 ml FLUSH ASDIRECTED PRN Sodium Chloride 0.9% [Saline Flush] Med 02/12/20 17:22 Active 10 ml FLUSH ONETIME PRN Peripheral IV Insertion Adult [OM.PC] Routine Oth 02/12/20 16:41 Ordered Medication Orders Sodium Chloride (Saline Flush) 10 ml FLUSH ASDIRECTED PRN PRN Reason: Keep Vein Open Sodium Chloride (Saline Flush) 10 ml FLUSH ONETIME PRN PRN Reason: Keep Vein Open Last Admin: 02/12/20 18:26 Dose: 10 ml Documented by: OMA Labs: Laboratory Tests 02/12/20 02/12/20 02/12/20 Range/Units 16:15 16:15 16:45 WBC 5.96 (3.98-10.04) K/mm3 RBC 4.91 (3.98-5.22) M/mm3 Hgb 14.1 D (11.2-15.7) gm/dl Hct 44.6 (34.1-44.9) % MCV 90.8 D (79.4-94.8) fl MCH 28.7 (25.6-32.2) pg MCHC 31.6 L (32.2-35.5) g/dl RDW Std Deviation 45.8 (36.4-46.3) fL Plt Count 307 (182-369) K/mm3 MPV 10.0 (9.4-12.3) fl Neut % (Auto) 68.8 (34.0-71.1) % Lymph % (Auto) 19.3 (19.3-51.7) % Bibb % (Auto) 9.4 (4.7-12.5) % Eos % (Auto) 0.7 (0.7-5.8) Baso % (Auto) 0.5 (0.1-1.2) % Neut # (Auto) 4.10 (1.56-6.13) K/mm3 Lymph # (Auto) 1.15 L (1.18-3.74) K/mm3 Bibb # (Auto) 0.56 H (0.24-0.36) K/mm3 Eos # (Auto) 0.04 (0.04-0.36) K/mm3 Baso # (Auto) 0.03 (0.01-0.08) K/mm3 Sodium 140 (136-145) mEq/L Potassium 3.8 (3.5-5.1) mEq/L Chloride 105 (98-107) mEq/L Carbon Dioxide 26 (21-32) mEq/L Anion Gap 12.8 (5-15) BUN 10 (7-18) mg/dL Creatinine 0.7 (0.55-1.02) mg/dL Est Cr Clr Drug Dosing 117.01 mL/min Estimated GFR (MDRD) > 60 (>60) mL/min BUN/Creatinine Ratio 14.3 (14-18) Glucose 101 (74-106) mg/dL Calcium 8.6 (8.5-10.1) mg/dL Magnesium 2.0 (1.8-2.4) mg/dl Total Bilirubin 0.3 (0.2-1.0) mg/dL AST 51 H (15-37) U/L ALT 119 H (14-59) U/L Alkaline Phosphatase 122 H (46-116) U/L C-Reactive Protein 2.1 H* (<1.0) mg/dL Total Protein 8.2 (6.4-8.2) g/dl Albumin 3.6 (3.4-5.0) g/dl Globulin 4.6 gm/dL Albumin/Globulin Ratio 0.8 L (1-2) Urine Color Yellow (Yellow) Urine Appearance Slt cloudy H (Clear) Urine pH 6.5 (5.0-8.0) Ur Specific [place] > or = 1.030 (1.005-1.030) Urine Protein Negative (Negative) Urine Glucose (UA) Negative (Negative) Urine Ketones Negative (Negative) Urine Occult Blood Negative (Negative) Urine Nitrite Negative (Negative) Urine Bilirubin Negative (Negative) Urine Urobilinogen 0.2 (0.2-1.0) Ur Leukocyte Esterase Trace H (Negative) Urine RBC Not seen (0-5) /hpf Urine WBC 5-10 H (0-5) /hpf Ur Squamous Epith Cells 30-40 H (0-5) /hpf Amorphous Sediment Few H (NOT SEEN) /hpf Urine Bacteria Rare (FEW) /hpf Urine Mucus Few (FEW) /hpf Urine HCG, Qual (NEGATIVE) 02/12/20 Range/Units 16:45 WBC (3.98-10.04) K/mm3 RBC (3.98-5.22) M/mm3 Hgb (11.2-15.7) gm/dl Hct (34.1-44.9) % MCV (79.4-94.8) fl MCH (25.6-32.2) pg MCHC (32.2-35.5) g/dl RDW Std Deviation (36.4-46.3) fL Plt Count (182-369) K/mm3 MPV (9.4-12.3) fl Neut % (Auto) (34.0-71.1) % Lymph % (Auto) (19.3-51.7) % Bibb % (Auto) (4.7-12.5) % Eos % (Auto) (0.7-5.8) Baso % (Auto) (0.1-1.2) % Neut # (Auto) (1.56-6.13) K/mm3 Lymph # (Auto) (1.18-3.74) K/mm3 Bibb # (Auto) (0.24-0.36) K/mm3 Eos # (Auto) (0.04-0.36) K/mm3 Baso # (Auto) (0.01-0.08) K/mm3 Sodium (136-145) mEq/L Potassium (3.5-5.1) mEq/L Chloride (98-107) mEq/L Carbon Dioxide (21-32) mEq/L Anion Gap (5-15) BUN (7-18) mg/dL Creatinine (0.55-1.02) mg/dL Est Cr Clr Drug Dosing mL/min Estimated GFR (MDRD) (>60) mL/min BUN/Creatinine Ratio (14-18) Glucose (74-106) mg/dL Calcium (8.5-10.1) mg/dL Magnesium (1.8-2.4) mg/dl Total Bilirubin (0.2-1.0) mg/dL AST (15-37) U/L ALT (14-59) U/L Alkaline Phosphatase (46-116) U/L C-Reactive Protein (<1.0) mg/dL Total Protein (6.4-8.2) g/dl Albumin (3.4-5.0) g/dl Globulin gm/dL Albumin/Globulin Ratio (1-2) Urine Color (Yellow) Urine Appearance (Clear) Urine pH (5.0-8.0) Ur Specific [place] (1.005-1.030) Urine Protein (Negative) Urine Glucose (UA) (Negative) Urine Ketones (Negative) Urine Occult Blood (Negative) Urine Nitrite (Negative) Urine Bilirubin (Negative) Urine Urobilinogen (0.2-1.0) Ur Leukocyte Esterase (Negative) Urine RBC (0-5) /hpf Urine WBC (0-5) /hpf Ur Squamous Epith Cells (0-5) /hpf Amorphous Sediment (NOT SEEN) /hpf Urine Bacteria (FEW) /hpf Urine Mucus (FEW) /hpf Urine HCG, Qual Negative (NEGATIVE) Meds: Medications Generic Name Dose Route Start Last Admin Trade Name Freq PRN Reason Stop Dose Admin Sodium Chloride 10 ml 02/12/20 16:41 Saline Flush FLUSH ASDIRECTED PRN Keep Vein Open Sodium Chloride 10 ml 02/12/20 17:22 02/12/20 18:26 Saline Flush FLUSH 10 ml ONETIME PRN Administration Keep Vein Open Discontinued Medications Generic Name Dose Route Start Last Admin Trade Name Freq PRN Reason Stop Dose Admin Diatrizoate Meglum/Diatrizoate Sod 40 ml 02/12/20 17:22 02/12/20 18:26 Gastrografin 37% PO 02/12/20 17:23 40 ml ONETIME ONE Administration Hydromorphone HCl 1 mg 02/12/20 17:30 02/12/20 17:35 Dilaudid IVPUSH 02/12/20 17:31 1 mg ONETIME ONE Administration Sodium Chloride 1,000 mls @ 999 mls/hr 02/12/20 16:41 02/12/20 17:00 Normal Saline IV 02/12/20 17:41 999 mls/hr ONETIME ONE Administration Iopamidol 100 ml 02/12/20 17:22 02/12/20 18:26 Isovue-300 (61%) IVPUSH 02/12/20 17:23 100 ml ONETIME ONE Administration Ondansetron HCl 4 mg 02/12/20 16:41 02/12/20 17:01 Zofran IVPUSH 02/12/20 16:42 4 mg ONETIME ONE Administration - Re-Assessments/Exams Free Text/Narrative Re-Assessment/Exam: 02/12/20 16:49 Patient presents to the ED for evaluation of a right sided abdomen pain. Have ordered urinalysis, urine hCG, basic labs, some IV fluids and 4 mg Zofran for initial management. 02/12/20 19:15 Patient laboratory evaluation is fairly unremarkable, CBC is within normal limits, metabolic panel is impressive for slightly elevated liver enzymes, patient states she does drink a little bit. CRP is mildly elevated at 2.1, urinalysis suspicious for a UTI, will be sent for culture to make sure that is not just contamination. Patient be started on Omnicef twice daily, with Naprosyn for pain management. Abdomen pelvis CT did show minimal increased stool throughout the colon, a 4.4 cm ovarian cyst within the left ovary, fatty infiltration within the liver, but no free fluid or inflammatory change. She also has a small fat-containing umbilical hernia. Departure - Departure Time of Disposition: 19:17 Disposition: Home, Self-Care 01 Condition: Good Clinical Impression: UTI (urinary tract infection) Qualifiers: Urinary tract infection type: acute cystitis Hematuria presence: without hematuria Qualified Code(s): N30.00 - Acute cystitis without hematuria Ovarian cyst Qualifiers: Laterality: left Qualified Code(s): N83.202 - Unspecified ovarian cyst, left side Constipation Qualifiers: Constipation type: other constipation type Qualified Code(s): K59.09 - Other constipation - Discharge Information *PRESCRIPTION DRUG MONITORING PROGRAM REVIEWED*: No *COPY OF PRESCRIPTION DRUG MONITORING REPORT IN PATIENT PAWAN: No Prescriptions: Naproxen [Naprosyn] 500 mg PO Q12HR #14 tab Cefdinir [Omnicef] 300 mg PO BID 5 Days #10 cap Instructions: Ovarian Cyst, [id number], Constipation, Adult, [id number], Urinary Tract Infection, Adult, [id number] Referrals: PCP,None [Primary Care Provider] - Forms: ED Department Discharge Additional Instructions: You have been evaluated in the ED for your urinary symptoms. Your urinalysis was consistent with an acute urinary tract infection. Your urine was sent for culture, and you will be notified if you should need a change in your antibiotic. This may take up to 48 hours to result. You have been given a prescription for Omnicef, 300 mg 1 tablet 2 times a day for 5 days. This has been electronically sent to the [facility] pharmacy located near [facility]. Please increase your oral fluid intake and try to stay adequately hydrated. Your CT demonstrated that you also have a 4.4 cm cyst within your left ovary, this should not cause too much pain, unless it decides to rupture. You did have constipation noted on the CT as well, the oral contrast should provide a laxative type effect, should help clean your bowels out, I highly recommend that you use MiraLAX, a stool softener on a daily basis, to keep your stool soft and keep your bowels regular. You have been given a prescription for Naprosyn, which is a pain reliever, please take 1 tab 2 times a day for further pain relief. Please return to the ED if your symptoms change or worsen. Sepsis Event Note (ED) - Evaluation Sepsis Screening Result: No Definite Risk - Focused Exam Vital Signs: Vital Signs Temp Pulse Resp BP Pulse Ox 02/12/20 16:00 97.4 F 91 20 132/90 97 - My Orders Last 24 Hours: My Active Orders 02/12/20 16:41 Peripheral IV Care [RC] . DIRECTED Sodium Chloride 0.9% [Saline Flush] 10 ml FLUSH ASDIRECTED PRN Peripheral IV Insertion Adult [OM.PC] Routine 02/12/20 17:22 Sodium Chloride 0.9% [Saline Flush] 10 ml FLUSH ONETIME PRN 02/12/20 18:59 CULTURE URINE [RM] Routine 02/12/20 19:15 Ketorolac [Toradol] 30 mg IVPUSH ONETIME ONE - Assessment/Plan Last 24 Hours: My Active Orders 02/12/20 16:41 Peripheral IV Care [RC] . DIRECTED Sodium Chloride 0.9% [Saline Flush] 10 ml FLUSH ASDIRECTED PRN Peripheral IV Insertion Adult [OM.PC] Routine 02/12/20 17:22 Sodium Chloride 0.9% [Saline Flush] 10 ml FLUSH ONETIME PRN 02/12/20 18:59 CULTURE URINE [RM] Routine 02/12/20 19:15 Ketorolac [Toradol] 30 mg IVPUSH ONETIME ONE
[2020-02-12] MEDS ORDERED: Diatrizoate Meglumine/Diatrizoate Sodium 37% 120 ML Bottle PO ONE (17:22)
[2020-02-12] MEDS ORDERED: Iopamidol 612 MG/ML 100 ML Bottle IVPUSH ONE (17:22)
[2020-02-12] MEDS ORDERED: HYDROmorphone 1 MG/ML Syringe IVPUSH ONE (17:30)
--- NOTE | 2020-02-12 18:48 | CT ---
CT abdomen and pelvis Technique: Multiple axial sections were obtained from above the dome of the diaphragm inferiorly through the pubic symphysis. Intravenous contrast and oral contrast was utilized. Comparison: No previous abdominal imaging is available. Findings: Visualized lung bases show slight right basilar atelectasis. Liver shows fatty infiltration. Spleen size is normal. Adrenal glands show no nodule. Pancreas is within normal limits. Kidneys show symmetric contrast enhancement without hydronephrosis or mass. Aorta shows no aneurysm. No retroperitoneal adenopathy or mesenteric abnormalities are seen. No calcifications are seen along the course of the ureters. No ureteral dilatation is seen. Appendix not visualized. Cyst noted within the left ovary measuring 4.4 cm in size. Right ovary appears within normal limits. No free fluid or inflammatory change is seen within the abdomen or within the pelvis. Minimal increased stool within the colon is seen. Bone window settings shows nothing acute. Small fat-containing umbilical hernia is noted. Impression: 1. 4.4 cm cyst within the left ovary. 2. Fatty infiltration within the liver. 3. Other findings as noted above. 4. Nothing acute is appreciated on CT study of the abdomen and pelvis. Diagnostic code #3 This report was dictated in MDT
[2020-02-12] MEDS ORDERED: Ketorolac 30 MG/ML SDV IVPUSH ONE (19:15)
== END 2020-02-12 19:53 | disposition home or self-care (01) ==
LOC: JD.ED 15:33
DX: N30.00 Acute cystitis without hematuria (principal); E66.9 Obesity, unspecified; Z68.35 Body mass index [BMI] 35.0-35.9, adult; Z91.030 Bee allergy status; Z91.018 Allergy to other foods
CPT/HCPCS: 36415; 74177; 80053; 81001; 81025; 83735; 85025; 86140; 87086; 96374; 96375; 99284; J1170; J1885; J2405; J7030; Q9963; Q9967

== ENCOUNTER 2023-03-30 16:23 | Emergency (ER) | payer BC, OTHER ==
[2023-03-30] MEDS ORDERED: HYDROmorphone 0.5 MG/0.5 ML Syringe IVPUSH ONE (16:44)
[2023-03-30] MEDS ORDERED: Ondansetron 4 MG/2 ML SDV IVPUSH ONE (16:44)
[2023-03-30] MEDS ORDERED: Sodium Chloride 0.9% 1,000 ML IV ONE (16:44)
[2023-03-30 17:08] LABS: BASOPHILS PERCENT AUTO 0.4 % (0.0-1.0); EOSINOPHILS ABSOLUTE AUTO 0.1 K/mm3 (0.0-0.4); EOSINOPHILS PERCENT AUTO 1.3 % (0.0-6.0); HEMOGLOBIN 12.7 gm/dl (12.0-16.0); IMMATURE GRAN ABSOLUTE AUTO 0.04 K/mm3 (0.00-0.05); IMMATURE GRAN PERCENT AUTO 0.4 % (0.0-0.4); LYMPHOCYTES ABSOLUTE AUTO 1.8 K/mm3 (1.0-4.8); LYMPHOCYTES PERCENT AUTO 20.1 % (24.0-44.0); MEAN CORPUSCULAR HGB CONC 31.8 g/dl (32.0-36.0); MEAN CORPUSCULAR VOLUME 78.7 fl (83.0-99.0); MEAN PLATELET VOLUME 9.4 fl (9.4-12.3); MONOCYTES ABSOLUTE AUTO 0.5 K/mm3 (0.0-0.8); MONOCYTES PERCENT AUTO 5.6 % (0.0-8.0); NEUTROPHILS ABSOLUTE AUTO 6.6 K/mm3 (1.8-7.7); NEUTROPHILS PERCENT AUTO 72.2 % (41.0-71.0); PLATELET COUNT,PLT 375 K/mm3 (150-400); RED BLOOD CELL COUNT 5.08 M/mm3 (4.10-5.30); WHITE BLOOD CELL COUNT,WBC 9.16 K/mm3 (3.9-11.3)
[2023-03-30 17:27] LABS: A/G RATIO 0.8 (1-2); ALBUMIN 3.8 g/dl (3.4-5.0); ANION GAP 12.6 (5-15); BILIRUBIN TOTAL 0.2 mg/dL (0.2-1.0); BUN/CREATININE RATIO 17.1 (14-18); C-REACTIVE PROTEIN 2.8 mg/dL (<1.0); CALCIUM 8.9 mg/dL (8.5-10.1); CREATININE 0.7 mg/dL (0.55-1.02); EST CRCL DRUG DOSING (CG) 114.01 mL/min; POTASSIUM,K 3.6 mEq/L (3.5-5.1); PROTEIN TOTAL,TP 8.7 g/dl (6.4-8.2)
[2023-03-30] MEDS ORDERED: Dicyclomine 10 MG Cap PO ONE (19:30)
[2023-03-30] MEDS ORDERED: Acetaminophen/oxyCODONE 325-5 MG Tab PO ONE ×2 (19:30→22:14)
[2023-03-30] MEDS ORDERED: Metoclopramide 10 MG/2 ML SDV IVPUSH ONE (21:00)
[2023-03-30] MEDS ORDERED: Ondansetron 4 MG Tab.DIS PO ONE (21:10)
[2023-03-30 22:38] VITALS: BP 120/65; PULSE 63
== END 2023-03-30 22:28 | disposition home or self-care (01) ==
LOC: JD.ED 16:23
DX: K80.20 Calculus of gallbladder without cholecystitis without obstruction (principal); E66.9 Obesity, unspecified; Z91.030 Bee allergy status; Z91.018 Allergy to other foods; Z68.37 Body mass index [BMI] 37.0-37.9, adult
CPT/HCPCS: 36415; 76705; 80053; 83690; 85025; 86140; 96361; 96374; 96375; 99284; A9270; J1170; J2405; J7030

== ENCOUNTER 2023-04-03 15:47 | Inpatient (IN) | payer OTHER ==
[2023-04-03] MEDS ORDERED: HYDROmorphone 0.5 MG/0.5 ML Syringe IVPUSH ONE ×2 (16:14→18:16)
[2023-04-03] MEDS ORDERED: Sodium Chloride 0.9% 1,000 ML IV STA (16:14)
[2023-04-03] MEDS ORDERED: Ondansetron 4 MG/2 ML SDV IVPUSH ONE (16:14)
[2023-04-03 16:41] LABS: BASOPHILS ABSOLUTE AUTO 0.1 K/mm3 (0.0-0.2); BASOPHILS PERCENT AUTO 0.5 % (0.0-1.0); EOSINOPHILS ABSOLUTE AUTO 0.1 K/mm3 (0.0-0.4); HEMATOCRIT 38.4 % (37.0-47.0); IMMATURE GRAN ABSOLUTE AUTO 0.07 K/mm3 (0.00-0.05); IMMATURE GRAN PERCENT AUTO 0.7 % (0.0-0.4); LYMPHOCYTES ABSOLUTE AUTO 2.6 K/mm3 (1.0-4.8); LYMPHOCYTES PERCENT AUTO 25.4 % (24.0-44.0); MEAN CORPUSCULAR HEMOGLOBIN 24.6 pg (28.0-32.0); MEAN CORPUSCULAR HGB CONC 31.3 g/dl (32.0-36.0); MEAN CORPUSCULAR VOLUME 78.7 fl (83.0-99.0); MEAN PLATELET VOLUME 9.5 fl (9.4-12.3); MONOCYTES ABSOLUTE AUTO 0.5 K/mm3 (0.0-0.8); MONOCYTES PERCENT AUTO 5.2 % (0.0-8.0); NEUTROPHILS ABSOLUTE AUTO 6.9 K/mm3 (1.8-7.7); NEUTROPHILS PERCENT AUTO 67.2 % (41.0-71.0); PLATELET COUNT,PLT 362 K/mm3 (150-400); RED BLOOD CELL COUNT 4.88 M/mm3 (4.10-5.30); WHITE BLOOD CELL COUNT,WBC 10.22 K/mm3 (3.9-11.3)
[2023-04-03 17:08] LABS: A/G RATIO 0.8 (1-2); ALBUMIN 3.6 g/dl (3.4-5.0); ANION GAP 15.4 (5-15); BILIRUBIN TOTAL 0.2 mg/dL (0.2-1.0); BUN/CREATININE RATIO 18.8 (14-18); C-REACTIVE PROTEIN 1.6 mg/dL (<1.0); CALCIUM 8.5 mg/dL (8.5-10.1); CREATININE 0.8 mg/dL (0.55-1.02); EST CRCL DRUG DOSING (CG) 80.41 mL/min; POTASSIUM,K 3.4 mEq/L (3.5-5.1); PROTEIN TOTAL,TP 8.3 g/dl (6.4-8.2)
[2023-04-03] MEDS: HYDROmorphone 0.5 MG/0.5 ML Syringe IVPUSH PRN (20:48)
[2023-04-03] MEDS: Promethazine 25 MG in Sodium Chloride 0.9% 50 ML IV PRN (21:49)
[2023-04-04] MEDS: Sodium Chloride 0.9% 1,000 ML IV SCH ×2 (00:08→07:53)
[2023-04-04] MEDS: HYDROmorphone 0.5 MG/0.5 ML Syringe IVPUSH PRN ×4 (04:31→20:45)
[2023-04-04 05:37] LABS: BASOPHILS ABSOLUTE AUTO 0.1 K/mm3 (0.0-0.2); BASOPHILS PERCENT AUTO 0.5 % (0.0-1.0); EOSINOPHILS ABSOLUTE AUTO 0.1 K/mm3 (0.0-0.4); EOSINOPHILS PERCENT AUTO 1.4 % (0.0-6.0); HEMATOCRIT 34.7 % (37.0-47.0); HEMOGLOBIN 11.2 gm/dl (12.0-16.0); IMMATURE GRAN ABSOLUTE AUTO 0.05 K/mm3 (0.00-0.05); IMMATURE GRAN PERCENT AUTO 0.5 % (0.0-0.4); LYMPHOCYTES ABSOLUTE AUTO 2.9 K/mm3 (1.0-4.8); LYMPHOCYTES PERCENT AUTO 30.9 % (24.0-44.0); MEAN CORPUSCULAR HEMOGLOBIN 25.5 pg (28.0-32.0); MEAN CORPUSCULAR HGB CONC 32.3 g/dl (32.0-36.0); MEAN CORPUSCULAR VOLUME 78.9 fl (83.0-99.0); MEAN PLATELET VOLUME 10.2 fl (9.4-12.3); MONOCYTES ABSOLUTE AUTO 0.5 K/mm3 (0.0-0.8); MONOCYTES PERCENT AUTO 5.6 % (0.0-8.0); NEUTROPHILS ABSOLUTE AUTO 5.7 K/mm3 (1.8-7.7); NEUTROPHILS PERCENT AUTO 61.1 % (41.0-71.0); PLATELET COUNT,PLT 351 K/mm3 (150-400); WHITE BLOOD CELL COUNT,WBC 9.41 K/mm3 (3.9-11.3)
[2023-04-04 05:38] LABS: ANION GAP 14.6 (5-15); BUN/CREATININE RATIO 21.7 (14-18); CREATININE 0.6 mg/dL (0.55-1.02); EST CRCL DRUG DOSING (CG) 107.22 mL/min; POTASSIUM,K 3.6 mEq/L (3.5-5.1)
[2023-04-04 06:15] LABS: CALCIUM 7.9 mg/dL (8.5-10.1)
[2023-04-04] MEDS: Famotidine 20 MG/2 ML SDV IV SCH (09:28)
[2023-04-04] MEDS: Lactated Ringers 1,000 ML IV SCH (16:06)
[2023-04-04] MEDS: Ondansetron 8 MG in Sodium Chloride 0.9% 50 ML IV PRN (17:12)
[2023-04-04] MEDS: Promethazine 25 MG in Sodium Chloride 0.9% 50 ML IV PRN (17:46)
[2023-04-05] MEDS: Lactated Ringers 1,000 ML IV SCH ×2 (00:53→09:39)
[2023-04-05] MEDS: Ketorolac 30 MG/ML SDV IVPUSH PRN ×2 (04:03→16:53)
[2023-04-05 05:57] LABS: BASOPHILS PERCENT AUTO 0.4 % (0.0-1.0); EOSINOPHILS ABSOLUTE AUTO 0.1 K/mm3 (0.0-0.4); EOSINOPHILS PERCENT AUTO 1.2 % (0.0-6.0); HEMATOCRIT 33.7 % (37.0-47.0); HEMOGLOBIN 10.8 gm/dl (12.0-16.0); IMMATURE GRAN ABSOLUTE AUTO 0.05 K/mm3 (0.00-0.05); IMMATURE GRAN PERCENT AUTO 0.6 % (0.0-0.4); LYMPHOCYTES ABSOLUTE AUTO 2.8 K/mm3 (1.0-4.8); MEAN CORPUSCULAR HEMOGLOBIN 25.1 pg (28.0-32.0); MEAN CORPUSCULAR VOLUME 78.4 fl (83.0-99.0); MEAN PLATELET VOLUME 10.6 fl (9.4-12.3); MONOCYTES ABSOLUTE AUTO 0.5 K/mm3 (0.0-0.8); MONOCYTES PERCENT AUTO 5.8 % (0.0-8.0); NEUTROPHILS ABSOLUTE AUTO 5.5 K/mm3 (1.8-7.7); PLATELET COUNT,PLT 330 K/mm3 (150-400); WHITE BLOOD CELL COUNT,WBC 8.98 K/mm3 (3.9-11.3)
[2023-04-05 06:03] LABS: A/G RATIO 0.8 (1-2); ALBUMIN 2.9 g/dl (3.4-5.0); ANION GAP 11.5 (5-15); BILIRUBIN TOTAL 0.2 mg/dL (0.2-1.0); CREATININE 0.6 mg/dL (0.55-1.02); EST CRCL DRUG DOSING (CG) 107.22 mL/min; POTASSIUM,K 3.5 mEq/L (3.5-5.1); PROTEIN TOTAL,TP 6.6 g/dl (6.4-8.2)
[2023-04-05] MEDS: Famotidine 20 MG/2 ML SDV IV SCH (09:42)
[2023-04-05] MEDS: HYDROmorphone 0.5 MG/0.5 ML Syringe IVPUSH PRN (21:26)
[2023-04-06] MEDS: Ketorolac 30 MG/ML SDV IVPUSH PRN ×2 (00:12→19:53)
[2023-04-06] MEDS: Lactated Ringers 1,000 ML IV SCH ×4 (00:14→20:54)
[2023-04-06] MEDS: HYDROmorphone 0.5 MG/0.5 ML Syringe IVPUSH PRN ×4 (04:54→21:17)
[2023-04-06] MEDS: Sodium Chloride 0.9% 10 ML Syringe FLUSH PRN (04:55)
[2023-04-06] MEDS ORDERED: Lidocaine 1% 6 ML ONE (09:04)
[2023-04-06] MEDS ORDERED: fentaNYL 100 MCG/2 ML SDV ONE (09:05)
[2023-04-06] MEDS ORDERED: Propofol 200 MG/20 ML SDV ONE (09:05)
[2023-04-06] MEDS ORDERED: Ondansetron 4 MG/2 ML SDV ONE (09:26)
[2023-04-06] MEDS: Famotidine 20 MG/2 ML SDV IV SCH (10:33)
[2023-04-06] MEDS ORDERED: Iopamidol 755 Mg/ML 100 ML Bottle IVPUSH ONE ×2 (11:19→12:52)
[2023-04-06] MEDS ORDERED: Sodium Chloride 0.9% 100 ML IV SCH ×2 (11:30→13:00)
[2023-04-06] MEDS ORDERED: Piperacillin/Tazobactam 4.5 GM in Sodium Chloride 0.9% 100 ML IV ONE (12:00)
[2023-04-06] MEDS ORDERED: Albuterol 0.083% 2.5 MG/3 ML Neb Soln NEB PRN (12:40)
[2023-04-06 13:18] LABS: LACTATE DEHYDROGENASE,LDH 223 U/L (81-234)
[2023-04-06] MEDS: Albuterol/Ipratropium 3.0-0.5 MG/3 ML Neb Soln NEB SCH ×3 (14:10→21:00)
[2023-04-06] MEDS: VANCOmycin 1.25 GM/250 ML 1.25 GM in Premix Bag 1 BAG IV SCH (16:09)
[2023-04-06] MEDS: Piperacillin/Tazobactam 4.5 GM in Sodium Chloride 0.9% 100 ML IV SCH (19:55)
[2023-04-07] MEDS: HYDROmorphone 0.5 MG/0.5 ML Syringe IVPUSH PRN ×8 (00:43→23:14)
[2023-04-07] MEDS: Albuterol/Ipratropium 3.0-0.5 MG/3 ML Neb Soln NEB SCH ×6 (01:13→21:35)
[2023-04-07] MEDS ORDERED: VANCOmycin 1.25 GM/250 ML 250 ML ONE (03:41)
[2023-04-07] MEDS: VANCOmycin 1.25 GM/250 ML 1.25 GM in Premix Bag 1 BAG IV SCH (04:00)
[2023-04-07] MEDS: Piperacillin/Tazobactam 4.5 GM in Sodium Chloride 0.9% 100 ML IV SCH ×3 (04:11→20:50)
[2023-04-07] MEDS: Lactated Ringers 1,000 ML IV SCH ×3 (04:11→20:50)
[2023-04-07 05:55] LABS: BASOPHILS PERCENT AUTO 0.5 % (0.0-1.0); EOSINOPHILS ABSOLUTE AUTO 0.2 K/mm3 (0.0-0.4); EOSINOPHILS PERCENT AUTO 2.3 % (0.0-6.0); HEMATOCRIT 33.8 % (37.0-47.0); HEMOGLOBIN 10.8 gm/dl (12.0-16.0); IMMATURE GRAN ABSOLUTE AUTO 0.02 K/mm3 (0.00-0.05); IMMATURE GRAN PERCENT AUTO 0.3 % (0.0-0.4); LYMPHOCYTES ABSOLUTE AUTO 1.6 K/mm3 (1.0-4.8); LYMPHOCYTES PERCENT AUTO 22.5 % (24.0-44.0); MEAN CORPUSCULAR HEMOGLOBIN 25.2 pg (28.0-32.0); MEAN CORPUSCULAR VOLUME 78.8 fl (83.0-99.0); MEAN PLATELET VOLUME 10.3 fl (9.4-12.3); MONOCYTES ABSOLUTE AUTO 0.3 K/mm3 (0.0-0.8); NEUTROPHILS ABSOLUTE AUTO 5.1 K/mm3 (1.8-7.7); NEUTROPHILS PERCENT AUTO 70.4 % (41.0-71.0); PLATELET COUNT,PLT 341 K/mm3 (150-400); RED BLOOD CELL COUNT 4.29 M/mm3 (4.10-5.30); WHITE BLOOD CELL COUNT,WBC 7.28 K/mm3 (3.9-11.3)
[2023-04-07 06:02] LABS: ANION GAP 11.8 (5-15); BUN/CREATININE RATIO 8.6 (14-18); CALCIUM 7.8 mg/dL (8.5-10.1); CREATININE 0.7 mg/dL (0.55-1.02); EST CRCL DRUG DOSING (CG) 91.9 mL/min; POTASSIUM,K 3.8 mEq/L (3.5-5.1)
[2023-04-07] MEDS: Famotidine 20 MG/2 ML SDV IV SCH (08:36)
[2023-04-07] MEDS: Ondansetron 8 MG in Sodium Chloride 0.9% 50 ML IV PRN (15:19)
[2023-04-07] MEDS: Sodium Chloride 0.9% 10 ML Syringe FLUSH PRN (20:52)
[2023-04-08] MEDS: Albuterol/Ipratropium 3.0-0.5 MG/3 ML Neb Soln NEB SCH ×4 (02:12→13:42)
[2023-04-08] MEDS: HYDROmorphone 0.5 MG/0.5 ML Syringe IVPUSH PRN ×2 (02:18→06:44)
[2023-04-08] MEDS: Piperacillin/Tazobactam 4.5 GM in Sodium Chloride 0.9% 100 ML IV SCH ×2 (04:34→12:17)
[2023-04-08] MEDS: Lactated Ringers 1,000 ML IV SCH (04:38)
[2023-04-08 05:37] LABS: BASOPHILS PERCENT AUTO 0.4 % (0.0-1.0); EOSINOPHILS ABSOLUTE AUTO 0.2 K/mm3 (0.0-0.4); HEMATOCRIT 34.4 % (37.0-47.0); HEMOGLOBIN 11.1 gm/dl (12.0-16.0); IMMATURE GRAN ABSOLUTE AUTO 0.02 K/mm3 (0.00-0.05); IMMATURE GRAN PERCENT AUTO 0.2 % (0.0-0.4); LYMPHOCYTES ABSOLUTE AUTO 2.4 K/mm3 (1.0-4.8); LYMPHOCYTES PERCENT AUTO 25.1 % (24.0-44.0); MEAN CORPUSCULAR HEMOGLOBIN 25.8 pg (28.0-32.0); MEAN CORPUSCULAR HGB CONC 32.3 g/dl (32.0-36.0); MEAN CORPUSCULAR VOLUME 79.8 fl (83.0-99.0); MEAN PLATELET VOLUME 9.7 fl (9.4-12.3); MONOCYTES ABSOLUTE AUTO 0.6 K/mm3 (0.0-0.8); MONOCYTES PERCENT AUTO 6.7 % (0.0-8.0); NEUTROPHILS ABSOLUTE AUTO 6.1 K/mm3 (1.8-7.7); NEUTROPHILS PERCENT AUTO 65.6 % (41.0-71.0); PLATELET COUNT,PLT 345 K/mm3 (150-400); RED BLOOD CELL COUNT 4.31 M/mm3 (4.10-5.30); WHITE BLOOD CELL COUNT,WBC 9.35 K/mm3 (3.9-11.3)
[2023-04-08] MEDS: Famotidine 20 MG/2 ML SDV IV SCH (09:55)
[2023-04-08 15:23] VITALS: BP 132/87; PULSE 87
== END 2023-04-08 15:32 | disposition home or self-care (01) | DRG 193 ==
LOC: JD.ED 15:47 → JD.MS 18:56 → OBSVTOIN 04-06 14:32 → JD.ICU 04-06 14:37
PROVIDERS: ADMIT Specialist; ATTEND Specialist
PROC: 0DB58ZX Excision of Esophagus, Via Natural or Artificial Opening Endoscopic, Diagnostic (ICD-10-PCS; principal; 2023-04-06)
DX: J18.9 Pneumonia, unspecified organism (principal); J96.01 Acute respiratory failure with hypoxia; J98.11 Atelectasis; E66.9 Obesity, unspecified; Z90.49 Acquired absence of other specified parts of digestive tract; Z91.030 Bee allergy status; Z91.018 Allergy to other foods; Z79.899 Other long term (current) drug therapy; Z68.36 Body mass index [BMI] 36.0-36.9, adult
CPT/HCPCS: 36415; 71046; 71046-26; 71275; 71275-26; 76705; 76705-26; 78227; 78227-26; 80048; 80053; 83615; 83690; 84703; 85025; 86140; 86738; 87040; 87641; 87899; 94640; 96361; 96365; 96367; 96374; 96375; 96376; 99285-25; A9537; G0378; J1170; J1885; J2405; J2543; J2550; J2704; J3010; J3370; J3490; J7030; J7120; J7620-GY; Q9967

== ENCOUNTER 2025-01-09 02:19 | Emergency (ER) | payer SELFPAY ==
[2025-01-09 03:35] LABS: BASOPHILS ABSOLUTE AUTO 0.1 K/mm3 (0.0-0.2); BASOPHILS PERCENT AUTO 0.5 % (0.0-1.0); EOSINOPHILS ABSOLUTE AUTO 0.4 K/mm3 (0.0-0.4); EOSINOPHILS PERCENT AUTO 2.3 % (0.0-6.0); HEMATOCRIT 40.1 % (37.0-47.0); HEMOGLOBIN 12.6 gm/dl (12.0-16.0); IMMATURE GRAN ABSOLUTE AUTO 0.22 K/mm3 (0.00-0.05); IMMATURE GRAN PERCENT AUTO 1.4 % (0.0-0.4); LYMPHOCYTES ABSOLUTE AUTO 2.5 K/mm3 (1.0-4.8); LYMPHOCYTES PERCENT AUTO 15.8 % (24.0-44.0); MEAN CORPUSCULAR HEMOGLOBIN 27.2 pg (28.0-32.0); MEAN CORPUSCULAR HGB CONC 31.4 g/dl (32.0-36.0); MEAN CORPUSCULAR VOLUME 86.6 fl (83.0-99.0); MEAN PLATELET VOLUME 9.3 fl (9.4-12.3); MONOCYTES PERCENT AUTO 6.1 % (0.0-8.0); NEUTROPHILS ABSOLUTE AUTO 11.7 K/mm3 (1.8-7.7); NEUTROPHILS PERCENT AUTO 73.9 % (41.0-71.0); PLATELET COUNT,PLT 321 K/mm3 (150-400); RED BLOOD CELL COUNT 4.63 M/mm3 (4.10-5.30); WHITE BLOOD CELL COUNT,WBC 15.77 K/mm3 (3.9-11.3)
[2025-01-09] MEDS: Ketorolac 30 MG/ML SDV IM ONE (03:47)
[2025-01-09 04:19] LABS: A/G RATIO 0.7 (1-2); ANION GAP 13.7 (5-15); BILIRUBIN TOTAL 0.2 mg/dL (0.2-1.0); CALCIUM 8.8 mg/dL (8.5-10.1); CREATININE 0.6 mg/dL (0.55-1.02); EST CRCL DRUG DOSING (CG) 135.75 mL/min; POTASSIUM,K 3.7 mEq/L (3.5-5.1); PROTEIN TOTAL,TP 7.4 g/dl (6.4-8.2)
[2025-01-09 04:59] VITALS: BP 128/71; PULSE 78
== END 2025-01-09 04:50 | disposition home or self-care (01) ==
LOC: JD.ED 02:19
DX: H66.93 Otitis media, unspecified, bilateral (principal); J18.9 Pneumonia, unspecified organism; Z91.018 Allergy to other foods; Z91.030 Bee allergy status; Z79.899 Other long term (current) drug therapy; Z90.49 Acquired absence of other specified parts of digestive tract
CPT/HCPCS: 36415; 71045; 80053; 85025; 96372; 99283; J1885; 99284